=== PATIENT | female | born 1985 | race Caucasian/White ===

== ENCOUNTER 2020-10-11 20:34 | Emergency (ER) | payer MEDICAID ==
[~2020-10-11] VITALS: Ht 167.6 cm; Wt 60.8 kg
[~2020-10-11 20:34] MED LIST: NKM
--- NOTE | 2020-10-11 20:57 | Emergency Room Report ---
History of Present Illness General Chief Complaint: Allergic Reaction Source: Patient Present Illness HPI Disclaimer: Please note that this report is being documented using [employer] technology. This can lead to erroneous entry secondary to incorrect interpretation by the dictating instrument. HPI: 35-year-old female presents for possible allergic reaction. She states she took some Aleve and developed diffuse rash with itching. She states she has had this reaction once before in the past. She denies any nausea vomiting. Intermittent shortness of breath. No history of anaphylaxis. PMH: Psoriasis PSH: Reviewed Social Hx: Denies smoking drinking or illicit drug use Allergies: Coded Allergies: ACETAMINOPHEN (Verified Allergy, Unknown, 03/17/19) COVID-19 Screening Contact w/high risk pt: No Experienced COVID-19 symptoms?: No COVID-19 Testing performed AGRONOMY ADVISOR: No Patient History Last Menstrual Period: current Reviewed Nursing Documentation: PMH: Agreed; PSxH: Agreed Review of Systems All Other Systems: negative except mentioned in HPI Physical Exam Vital Signs Date Time Temp Pulse Resp B/P (MAP) Pulse Ox O2 Delivery O2 Flow Rate FiO2 10/11/20 20:41 98.8 79 16 81/51 (61) 98 Room Air Sp02 EP Interpretation: reviewed, normal General Appearance: well appearing, no apparent distress Head: normocephalic, atraumatic Eyes: bilateral eye PERRL, bilateral eye EOMI ENT: hearing grossly normal, moist mucus membranes Neck: full range of motion, supple Respiratory: lungs clear, normal breath sounds, no rhonchi, no respiratory distress, no retraction, no wheezing Cardiovascular #1: normal peripheral pulses, regular rate, rhythm, no murmur Gastrointestinal: non tender, soft, non-distended, no guarding Neurologic: alert, oriented x3, no focal defects Skin: rash - Erythematous urticarial rash noted to upper and lower extremities and trunk., warm/dry Medical Decision Making Diagnostic Impression: Primary Impression: Allergic reaction ER Course Patient presented with what appeared to be an allergic reaction secondary to naproxen. She has had 1 similar reaction in the past. She had no oral edema, she was in no respiratory distress and lungs were clear. She had an IV inserted, Benadryl Pepcid and Solu-Medrol were given. After 1 hour observation patient feeling dramatically improved, no acute distress, rash resolved. Will be discharged home with antihistamines, prednisone and instructions to avoid further naproxen intake. Last Vital Signs Date Time Temp Pulse Resp B/P (MAP) Pulse Ox O2 Delivery O2 Flow Rate FiO2 10/11/20 20:41 98.8 79 16 81/51 (61) 98 Room Air Status: improved Disposition: HOME, SELF-CARE Condition: Improved Scripts Famotidine* (Pepcid 20mg tablet*) 20 Mg Tablet 20 MG ORAL TWICE A DAY for Gerd, #14 TAB 0 Refills Prov: Alex Meier M.D. 10/11/20 Prednisone* (PREDNISONE*) 20 Mg Tablet 40 MG ORAL DAILY, #8 TAB Prov: Alex Meier M.D. 10/11/20 Diphenhydramine HCl (Benadryl) 25 Mg Capsule 50 MG PO EVERY 6 HOURS PRN for rash, #60 CAP Prov: Alex Meier M.D. 10/11/20 Alex Meier M.D. Oct 11, 2020 20:57
[2020-10-11 21:00] VITALS: BP 127/69
[2020-10-11] MEDS ORDERED: DiphenhydrAMINE 50mg/ml Inj IVP ONE (21:00)
[2020-10-11] MEDS ORDERED: Solu-MEDROL 125mg Inj IVP ONE (21:00)
[2020-10-11] MEDS ORDERED: PREDNISONE20 MG ORAL (21:48)
[2020-10-11] MEDS ORDERED: BENADRYL25 M3 PO (21:48)
[2020-10-11] MEDS ORDERED: FAMOTIDINE20 MG ORAL (21:48)
[2020-10-11 21:56] VITALS: BP 129/72
== END 2020-10-11 21:56 | disposition home or self-care (01) ==
LOC: EMR 21:00
DX: L23.89 Allergic contact dermatitis due to other agents (principal); T39.315A Adverse effect of propionic acid derivatives, initial encounter; Y92.9 Unspecified place or not applicable; Z88.1 Allergy status to other antibiotic agents
CPT/HCPCS: 96374; 96375; J1200; J2930; S0028; Z7502; 99284